=== PATIENT | female | born 1990 | race African-American/Black ===

== ENCOUNTER 2019-06-12 10:11 | Emergency (ER) | payer OTHER ==
[~2019-06-12] VITALS: Ht 172.7 cm; Wt 65.8 kg
== END 2019-06-12 13:42 | disposition home or self-care (01) ==
LOC: ER 10:11
DX: K29.60 Other gastritis without bleeding (principal)

== ENCOUNTER → 2022-02-02 | Emergency (ER) | payer OTHER ==
[~2022-02-02] VITALS: Ht 172.7 cm; Wt 63.5 kg
== END | disposition home or self-care (01) ==
LOC: ER 21:02
DX: B34.8 Other viral infections of unspecified site (principal); Z88.6 Allergy status to analgesic agent

== ENCOUNTER 2022-12-21 16:59 | Emergency (ER) | payer OTHER ==
[~2022-12-21] VITALS: Ht 175.3 cm; Wt 73.5 kg
[2022-12-22] MEDS ORDERED: ONDANSETRON ODT4 MG PO ×2 (01:57→01:58)
[2022-12-22] MEDS ORDERED: PEPCID40 MG PO (01:58)
== END 2022-12-22 02:35 ==
LOC: ER 16:59
DX: K29.70 Gastritis, unspecified, without bleeding (principal); Z88.6 Allergy status to analgesic agent

== ENCOUNTER 2023-09-28 16:57 | Emergency (ER) | payer OTHER ==
[~2023-09-28] VITALS: Ht 172.7 cm; Wt 77.1 kg
[~2023-09-28 16:57] MED LIST: ONDANSETRON ODT4 MG PO; PEPCID40 MG PO
[2023-09-28 18:11] LABS: HEMATOCRIT 39.2 % (36.0-45.00); HEMOGLOBIN 13.1 g/dL (12.0-15.00); MEAN CELL VOLUME 83.6 fL (80.00-100.00); MEAN CORPUSCULAR HGB CONC 33.5 g/dl (32.0-36.0); PLATELET COUNT 200 K/uL (150-450); RED BLOOD COUNT 4.69 M/uL (4.00-6.00); RED CELL DISTRIBUTION WIDTH 13.7 % (11.5-14.5)
== END 2023-09-28 20:20 | disposition home or self-care (01) ==
LOC: ER 16:58
PROVIDERS: Emergency Medicine
DX: J10.1 Influenza due to other identified influenza virus with other respiratory manifestations (principal); R53.81 Other malaise; Z20.822 Contact with and (suspected) exposure to COVID-19; Z88.6 Allergy status to analgesic agent; Z91.013 Allergy to seafood

== ENCOUNTER 2024-06-11 21:54 | Emergency (ER) | payer OTHER ==
[~2024-06-11] VITALS: Ht 172.7 cm; Wt 78.0 kg
[2024-06-11] MEDS ORDERED: CEFTRIAXONE SODIUM 1,000 MG VIAL IM STA (23:04)
[2024-06-11] MEDS ORDERED: TETANUS & DIPHTHERIA TOX,ADULT 0.5 ML VIAL IM STA (23:05)
[2024-06-11] MEDS ORDERED: CEFTRIAXONE SODIUM 1,000 MG VIAL ONE (23:16)
[2024-06-11] MEDS ORDERED: TETANUS DIPHTHERIA TOX. ADSOR 5 ML VIAL IM ONE (23:16)
== END 2024-06-11 23:30 | disposition home or self-care (01) ==
LOC: ER 21:56
DX: S61.213A Laceration without foreign body of left middle finger without damage to nail, initial encounter (principal); W27.0XXA Contact with workbench tool, initial encounter; Y93.89 Activity, other specified; Y92.89 Other specified places as the place of occurrence of the external cause; Y99.9 Unspecified external cause status; Z88.6 Allergy status to analgesic agent; Z91.013 Allergy to seafood

== ENCOUNTER 2024-06-14 11:26 | Emergency (ER) | payer OTHER ==
[~2024-06-14] VITALS: Ht 172.7 cm; Wt 78.0 kg
== END 2024-06-14 14:38 | disposition left against medical advice (07) ==
LOC: ER 11:28
DX: Z53.21 Procedure and treatment not carried out due to patient leaving prior to being seen by health care provider (principal)